=== PATIENT | male | born 1985 | race Caucasian/White ===

== ENCOUNTER 2017-10-15 12:13 | Emergency (ER) | payer MEDICAID ==
[~2017-10-15] VITALS: Ht 182.9 cm; Wt 99.8 kg
[~2017-10-15 12:13] MED LIST: QUET200T30
[2017-10-15 15:17] VITALS: BP 152/93
== END 2017-10-15 16:16 | disposition home or self-care (01) ==
LOC: ER 12:13
DX: J20.9 Acute bronchitis, unspecified (principal); F17.210 Nicotine dependence, cigarettes, uncomplicated; Z90.49 Acquired absence of other specified parts of digestive tract
CPT/HCPCS: 71020